=== PATIENT | female | born 1990 | race Caucasian/White ===

== ENCOUNTER 2023-01-23 21:25 | Emergency (ER) | payer BC ==
[2023-01-23] MEDS ORDERED: methylPREDNISolone NA SUCC 125 MG/2 ML VIAL IVPUSH ONE (21:32)
[2023-01-23] MEDS ORDERED: AZITHROMYCIN 500 MG TABLET PO ONE (21:33)
[2023-01-23] MEDS ORDERED: methylPREDNISolone NA SUCC 125 MG/2 ML VIAL ONE (21:35)
[2023-01-23] MEDS ORDERED: AZITHROMYCIN 250 MG TABLET ONE (21:45)
[2023-01-23 21:51] VITALS: TEMP 98.1
[2023-01-23 22:24] VITALS: BP 130/93; PULSE 95; RESP 16
== END 2023-01-23 22:44 | disposition home or self-care (01) ==
LOC: FER 21:25
PROC: 3E0333Z Introduction of Anti-inflammatory into Peripheral Vein, Percutaneous Approach (ICD-10-PCS; principal; 2023-01-23)
PROC: 3E033GC Introduction of Other Therapeutic Substance into Peripheral Vein, Percutaneous Approach (ICD-10-PCS; 2023-01-23)
DX: R21 Rash and other nonspecific skin eruption (principal); T36.0X5A Adverse effect of penicillins, initial encounter
CPT/HCPCS: 99284-25